=== PATIENT | male | born 2000 | race Native Hawaiian/Other Pacific Islander ===

== ENCOUNTER 2018-09-05 14:50 | Emergency (ER) | payer SELFPAY ==
[2018-09-05 15:40] VITALS: BP 140/80; TEMP 98
--- NOTE | 2018-09-05 16:06 | ED PDOC ---
HPI: Head Injury Time Seen by Provider: 09/05/18 16:04 Chief Complaint (Nursing): ENT Problem Chief Complaint (Provider): right ear pain History Per: Patient (18 y/o male here with right ear pain after being hit by a soccer ball. Patient states he was struck 2 hours ago and notes improvement in pain but is concerned with condition of eardrum.) Past Medical History Reviewed: Historical Data, Nursing Documentation, Vital Signs Vital Signs: Last Vital Signs Temp 98 F 09/05/18 15:38 Pulse 110 H 09/05/18 15:38 Resp 20 09/05/18 15:38 BP 140/80 09/05/18 15:38 Pulse Ox 100 09/05/18 15:38 - Family History Family History: States: No Known Family Hx - Allergies Allergies/Adverse Reactions: Allergies Allergy/AdvReac Type Severity Reaction Status Date / Time No Known Allergies Allergy Verified 09/05/18 15:38 Review of Systems ROS Statement: Except As Marked, All Systems Reviewed And Found Negative ENT: Positive for: Ear Pain Physical Exam - Reviewed Nursing Documentation Reviewed: Yes Vital Signs Reviewed: Yes - Physical Exam Appears: Positive for: Well, Non-toxic, No Acute Distress Head Exam: Positive for: ATRAUMATIC, NORMAL INSPECTION, NORMOCEPHALIC Skin: Positive for: Normal Color, Warm, DRY Eye Exam: Positive for: EOMI, Normal appearance, PERRL ENT: Positive for: Normal ENT Inspection Neck: Positive for: Normal, Painless ROM Cardiovascular/Chest: Positive for: Regular Rate, Rhythm Respiratory: Positive for: CNT, Normal Breath Sounds Gastrointestinal/Abdominal: Positive for: Normal Exam, Soft Back: Positive for: Normal Inspection Extremity: Positive for: Normal ROM Neurologic/Psych: Positive for: Alert, Oriented - ECG O2 Sat by Pulse Oximetry: 100 - Progress ED Course And Treament: Patient declined Motrin in ED. Disposition - Clinical Impression Clinical Impression: Right ear pain, Head injury - Patient ED Disposition Is Patient to be Admitted: No - Disposition Disposition: Routine/Home Disposition Time: 16:06 Condition: FAIR Instructions: Closed Head Injury (DC)
[2018-09-05 16:19] VITALS: PULSE 98; RESP 18; O2SAT 99
== END 2018-09-05 16:21 | disposition home or self-care (01) ==
LOC: H.ER 14:50
DX: S09.90XA Unspecified injury of head, initial encounter (principal); H92.01 Otalgia, right ear; W21.02XA Struck by soccer ball, initial encounter